=== PATIENT | female | born 1995 | race Two or more races ===

== ENCOUNTER → 2020-06-20 | Emergency (ER) | payer MEDICAID ==
[~2020-06-20] VITALS: Ht 165.1 cm; Wt 68.0 kg
[2020-06-20 14:21] VITALS: BP 123/83
== END | disposition left against medical advice (07) ==
LOC: ER 14:10
DX: J45.909 Unspecified asthma, uncomplicated (principal); Z53.21 Procedure and treatment not carried out due to patient leaving prior to being seen by health care provider

== ENCOUNTER 2024-12-20 00:21 | Emergency (ER) | payer MEDICAID ==
[~2024-12-20] VITALS: Ht 167.6 cm; Wt 63.6 kg
[~2024-12-20 00:21] MED LIST: ALBU108A5 IN; DOXY-286 PO; PRED1PAK9 PO
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
[2024-12-20 02:26] LABS: Hematocrit 40.5 % (36.0-46.0); Hemoglobin 13.9 g/dL (12.2-16.2); Mean Corpuscular Hemoglobin 30.9 pg (28.0-32.0); Mean Corpuscular Volume 90.4 fL (80.0-100.0); Nucleated Red Blood Cells % 0.0 %
[2024-12-20 02:36] LABS: Chloride 106 mmol/L (98-107); Potassium 4.1 mmol/L (3.5-5.1); Sodium 140 mmol/L (136-145)
[2024-12-20 02:37] LABS: Anion Gap 9 (5-15); Calcium 9.2 mg/dL (8.7-10.4); Carbon Dioxide 25 mmol/L (20-31)
[2024-12-20 02:42] LABS: BUN/Creatinine Ratio 15.5 (10.0-20.0); Blood Urea Nitrogen 9 mg/dL (9-23); Glucose 87 mg/dL (74-106)
[2024-12-20 02:44] LABS: Acetaminophen < 2.0 UG/ML (10.0-20.0); Salicylate < 3.0 mg/dL (-30)
[2024-12-20 02:45] VITALS: PULSE 85; RESP 14; O2SAT 94
[2024-12-20] MEDS: hydrOXYzine 25 MG TAB or CAP PO ONE (03:20)
[2024-12-20 09:04] VITALS: BP 94/47; TEMP 98
[2024-12-20 11:01] LABS: Cannabinoid Screen, Urine Pos (NEGATIVE)
[2024-12-20 11:02] LABS: Amphetamine Screen, Urine Neg (NEGATIVE); Barbiturate Scree,Urine Neg (NEGATIVE); Benzodiazephine Screen, Urine Pos (NEGATIVE); Cocaine Screen, Urine Neg (NEGATIVE); Opiate Scree,Urine Neg (NEGATIVE); Phencyclidine Screen, Urine Neg (NEGATIVE)
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
[2024-12-20 11:28] VITALS: PULSE 71; RESP 18; O2SAT 98
[2024-12-20] MEDS ORDERED: ESCI1TAB36 PO (12:39)
[2024-12-20] MEDS ORDERED: HYDR-3682 PO (12:39)
[2024-12-20 13:00] LABS: Urine Protein, UAD Negative (Negative)
== END 2024-12-20 12:43 ==
LOC: ER 00:21 → EDBD 00:21 → ER 12:43
DX: R45.851 Suicidal ideations (principal); F41.9 Anxiety disorder, unspecified; F12.90 Cannabis use, unspecified, uncomplicated; Z76.0 Encounter for issue of repeat prescription; Z79.899 Other long term (current) drug therapy
CPT/HCPCS: 36415; 80048; 80307; 80320; 80329; 81001; 85025